=== PATIENT | male | born 1970 | race Caucasian/White ===

== ENCOUNTER 2016-08-19 11:34 | Emergency (ER) | payer BC ==
[2016-08-19] MEDS ORDERED: Tetracaine 0.5% OPTH.SOL 4 ML* 1 DROP BTL ONE (13:20)
[2016-08-19] MEDS ORDERED: BSS OPTH.SOL* BTL ONE (13:20)
[2016-08-19] MEDS ORDERED: Fluorescein Sodium TOPICAL* 1 MG TEST ONE (13:20)
--- NOTE | 2016-08-19 13:38 | UC ---
Eye Complaint HPI - HPI Summary HPI Summary: patient thinks he had something in his eye last night, used saline to flush it out. he still feels like there is something in there. left upper lid is swollen. - History of Current Complaint Chief Complaint: UCEye Stated Complaint: FB IN LEFT EYE Time Seen by Provider: 08/19/16 13:23 Hx Obtained From: Patient Onset/Duration: Sudden Onset, Lasting Hours Timing: Constant Severity Initially: Mild Severity Currently: Moderate Location of Injury: Conjunctiva, Eye Lid (upper), Sclera Character: Foreign Body Sensation Aggravating Factor(s): Light Alleviating Factor(s): Nothing Associated Signs And Symptoms: Positive: Drainage (Clear) - Allergies/Home Medications Allergies/Adverse Reactions: Allergies Allergy/AdvReac Type Severity Reaction Status Date / Time No Known Allergies Allergy Verified 08/19/16 12:40 Home Medications: Home Medications Bp Med 1 tab PO DAILY 08/19/16 [History Confirmed 08/19/16] Cholesterol Med 1 tab PO DAILY 08/19/16 [History] PMH/Surg Hx/FS Hx/Imm Hx Previously Healthy: Yes Cardiovascular History Of: Reports: Hypertension - Surgical History Surgical History: None - Family History Known Family History: Negative: Hypertension - Social History Alcohol Use: Daily Alcohol Amount: 8-10 beers a day Substance Use Type: None Smoking Status (MU): Heavy Every Day Tobacco Smoker Type: Cigarettes Amount Used/How Often: 1/2 PPD Review of Systems Constitutional: Negative Skin: Negative Eyes: Eye Redness, Other - swollen ENT: Negative Respiratory: Negative Cardiovascular: Negative Gastrointestinal: Negative Genitourinary: Negative Motor: Negative Neurovascular: Negative Musculoskeletal: Negative Neurological: Negative Psychological: Negative All Other Systems Reviewed And Are Negative: Yes Physical Exam Triage Information Reviewed: Yes Appearance: Well-Appearing, Well-Nourished, Pain Distress Vital Signs: Initial Vital Signs Temp 98.1 F 08/19/16 12:41 Pulse 86 08/19/16 12:41 Resp 16 08/19/16 12:41 BP 119/62 08/19/16 12:41 Pulse Ox 100 08/19/16 12:41 Vital Signs Reviewed: Yes Eye Exam: Normal Eyes: Positive: Conjunctiva Inflamed, Other: - upper left lid is swollen and red , diffuse redness on the sclera ENT Exam: Normal Dental Exam: Normal Neck exam: Normal Respiratory Exam: Normal Respiratory: Positive: Chest non-tender, Lungs clear, Normal breath sounds Cardiovascular Exam: Normal Cardiovascular: Positive: RRR, No Murmur, Pulses Normal Abdominal Exam: Normal Abdomen Description: Positive: Nontender, No Organomegaly, Soft Bowel Sounds: Positive: Present Musculoskeletal Exam: Normal Musculoskeletal: Positive: Strength Intact, ROM Intact, No Edema Neurological Exam: Normal Psychological Exam: Normal Skin Exam: Normal Eye Complaint Course/Dx - Course Course Of Treatment: hx obtained, exam performed, meds reviewed, flurescene eye exam performed, abraisions to cornea noted, no FB seen - Differential Dx/Diagnosis Differential Diagnosis/HQI/PQRI: Conjunctivitis, Corneal Abrasion, Keratitis, Penetrating Injury, Periorbital Cellulitis, Orbital Cellulitis Provider Diagnoses: corneal abrasion Discharge - Discharge Plan Condition: Stable Disposition: HOME Patient Education Materials: Corneal Abrasion (ED) Additional Instructions: use the medication as prescribed. Follow up with eye doctor if pain and irritation are not improving in the next 2-3 days.
== END 2016-08-19 13:47 | disposition home or self-care (01) ==
LOC: UCCORT 11:34
DX: S05.02XA Injury of conjunctiva and corneal abrasion without foreign body, left eye, initial encounter (principal); X58.XXXA Exposure to other specified factors, initial encounter; Y93.9 Activity, unspecified; Y92.9 Unspecified place or not applicable; I10 Essential (primary) hypertension; F17.210 Nicotine dependence, cigarettes, uncomplicated
CPT/HCPCS: 99202; A9270-GY; G0463

== ENCOUNTER 2016-09-03 09:48 | Emergency (ER) | payer BC ==
[2016-09-03 10:26] VITALS: BP 153/94
--- NOTE | 2016-09-03 10:39 | UC ---
UC General HPI - HPI Summary HPI Summary: complaint of chest wall pain that started approx 1 week ago constant dull aching pain pain goes from the front of chest to the back of chest sometimes he feesl shortness of breath and dizziness with the pain sometimes gets a sharp stabbing chest pain for 5-10 seconds moving his arm overhead lesssens the pain nothing makes the pain worse denies diaphoresis, palpitations, nausea, denies any recent trauma- works as a lathe machinist recent cough ,nasal congestion, fatigued cardiac workup 1 year ago- Dr Hathaway is PCP denies fever - History of Current Complaint Chief Complaint: UCAbdominalPain Stated Complaint: FLANK/BACK PAIN Time Seen by Provider: 09/03/16 10:25 Hx Obtained From: Patient - Allergy/Home Medications Allergies/Adverse Reactions: Allergies Allergy/AdvReac Type Severity Reaction Status Date / Time No Known Allergies Allergy Verified 09/03/16 10:16 PMH/Surg Hx/FS Hx/Imm Hx Previously Healthy: Yes Cardiovascular History Of: Reports: Hypertension - Surgical History Surgical History: None - Family History Known Family History: Positive: Cardiac Disease - father- CAD- possible [place], brother with CAD, Hypertension - father, brother Negative: Diabetes - Social History Occupation: Employed Full-time Lives: With Family Alcohol Use: Daily Alcohol Amount: 10-12 beers a day Substance Use Type: None Smoking Status (MU): Heavy Every Day Tobacco Smoker Type: Cigarettes Amount Used/How Often: 1/2 PPD Length of Time of Smoking/Using Tobacco: started at age 20 Have You Smoked in the Last Year: Yes Review of Systems Constitutional: Negative Skin: Negative Eyes: Negative ENT: Negative Respiratory: Shortness Of Breath Cardiovascular: Chest Pain Gastrointestinal: Negative Genitourinary: Negative Motor: Negative Neurovascular: Negative Musculoskeletal: Negative Neurological: Negative Psychological: Negative All Other Systems Reviewed And Are Negative: Yes Physical Exam Triage Information Reviewed: Yes Appearance: Well-Nourished, Ill-Appearing, Obese Vital Signs: Initial Vital Signs Temp 98.3 F 09/03/16 10:08 Pulse 90 09/03/16 10:08 Resp 14 09/03/16 10:08 BP 153/94 09/03/16 10:08 Pulse Ox 99 09/03/16 10:08 Vital Signs Reviewed: Yes Eyes: Positive: Conjunctiva Clear ENT: Positive: Pharynx normal, TMs normal Neck: Positive: No Lymphadenopathy Respiratory: Positive: Chest non-tender, Lungs clear, Normal breath sounds, No respiratory distress, No accessory muscle use Cardiovascular: Positive: RRR, No Murmur, Pulses Normal, Brisk Capillary Refill Abdomen Description: Positive: Nontender, No Organomegaly, Soft, Distended. Negative: CVA Tenderness (R), CVA Tenderness (L), Guarding Bowel Sounds: Positive: Present Musculoskeletal: Positive: No Edema Neurological Exam: Normal Psychological Exam: Normal Skin Exam: Normal Course/Dx - Course Course Of Treatment: exam completed. cannot reproduce chest wall pain with palpation. chest x-ray shows no acute abnormalities. EKG shows NSR no st chnages or ectopy. will send to ED for further evaluation and treatment d/t multiple cardiac risk factors and chest pain for 1 week - Differential Dx - Multi-Symptom Provider Diagnoses: chest pain - Physician Notifications Discussed Patient Care With: Alicia Salas NP Time Discussed With Above Provider: 11:27 - 10:53- Dr Pierre Discharge - Discharge Plan Condition: Stable [facility]
--- NOTE | 2016-09-03 11:14 | RAD ---
INDICATION: Chest pain. Short of breath. COMPARISON: None TECHNIQUE: PA and lateral dual-energy views were obtained. FINDINGS: Bones/Soft Tissues: There are no acute bony findings. Cardiomediastinal: The cardiomediastinal silhouette is normal. Lungs: There are no infiltrates. Pleura: There are no pleural effusions. Other: None IMPRESSION: NO ACTIVE DISEASE.
== END 2016-09-03 11:30 | disposition short-term general hospital (02) ==
LOC: UCCORT 09:48
DX: R07.9 Chest pain, unspecified (principal); F17.210 Nicotine dependence, cigarettes, uncomplicated
CPT/HCPCS: 71020; 93005; 99212; G0463

== ENCOUNTER 2018-05-12 09:38 | Emergency (ER) | payer BC ==
[2018-05-12 11:16] VITALS: BP 130/92
--- NOTE | 2018-05-12 11:42 | UC ---
UC General HPI - HPI Summary HPI Summary: was about to toss a large rock when he got a sudden pain in R shoulder 2 days ago. c/o ongoing pain. notes difficulty to raise arm due to pain. no numbness or weakness to hand. - History of Current Complaint Chief Complaint: UCUpperExtremity Stated Complaint: RT SHOULDER INJURY Time Seen by Provider: 05/12/18 11:32 Hx Obtained From: Patient Onset/Duration: Sudden Onset Timing: Constant Pain Intensity: 0 Aggravating: abduction - Allergy/Home Medications Allergies/Adverse Reactions: Allergies Allergy/AdvReac Type Severity Reaction Status Date / Time bee venom protein (honey bee) Allergy Unknown Verified 05/12/18 11:13 Reaction Details PMH/Surg Hx/FS Hx/Imm Hx Endocrine History: Dyslipidemia Cardiovascular History: Hypertension - Surgical History Surgical History: None - Family History Known Family History: Positive: Cardiac Disease - father- CAD- possible [place], brother with CAD, Hypertension - father, brother Negative: Diabetes - Social History Occupation: Employed Full-time Lives: With Family Alcohol Use: 10-12 beers every other day Alcohol Amount: 10-12 beers a day Substance Use Type: None Smoking Status (MU): Heavy Every Day Tobacco Smoker Type: Cigarettes Amount Used/How Often: 1/2 PPD Length of Time of Smoking/Using Tobacco: Since Age 20 Have You Smoked in the Last Year: Yes Review of Systems All Other Systems Reviewed And Are Negative: Yes Constitutional: Positive: Negative Skin: Positive: Negative Eyes: Positive: Negative ENT: Positive: Negative Respiratory: Positive: Negative Cardiovascular: Positive: Negative Gastrointestinal: Positive: Negative Genitourinary: Positive: Negative Neurovascular: Positive: Negative Musculoskeletal: Positive: Negative Neurological: Positive: Negative Psychological: Positive: Negative Physical Exam Triage Information Reviewed: Yes Appearance: Well-Appearing Vital Signs: Initial Vital Signs Temp 97.9 F 05/12/18 11:11 Pulse 83 05/12/18 11:11 Resp 17 05/12/18 11:11 BP 130/92 05/12/18 11:11 Pulse Ox 98 05/12/18 11:11 Vital Signs Reviewed: Yes Eyes: Positive: Conjunctiva Clear ENT: Positive: Normal ENT inspection Neck: Positive: Supple, Nontender, No Lymphadenopathy Respiratory: Positive: Lungs clear, Normal breath sounds Cardiovascular: Positive: RRR, No Murmur Abdomen Description: Positive: Nontender, No Organomegaly, Soft Bowel Sounds: Positive: Present Musculoskeletal: Positive: Other: - RUE: compared to LUE has some mild swelling over anterior shoulder. tender over anterior - lateral shoulder. Biceps and tendons are non tender. AC joint non tender. Limited ROM in abduction due to pain. Negative anterior stress. Rest of arm non tender and has full s/v/m function. Neurological: Positive: Alert Psychological: Positive: Age Appropriate Behavior Skin Exam: Normal Diagnostics - Radiology No standard instances Radiology Interpretation Completed By: Radiologist - R shoulder=NO ACUTE OSSEOUS INJURY. IF SYMPTOMS PERSIST, RECOMMEND REPEAT IMAGING. Course/Dx - Differential Dx - Multi-Symptom Differential Diagnoses: Other - rotator cuff injury, biceps mm/tendon injury, ac joint injury - Diagnoses Provider Diagnosis: Right shoulder pain Discharge - Sign-Out/Discharge Documenting (check all that apply): Patient Departure All imaging exams completed and their final reports reviewed: Yes - Discharge Plan Condition: Stable Disposition: HOME Prescriptions: Naproxen [Naprosyn 500 mg tab] 500 mg PO BID 5 Days #10 tablet Patient Education Materials: Rotator Cuff Injury (ED), Shoulder Pain (ED) Referrals: Maxi Carter MD [Medical Doctor] - As Soon As Possible - Billing Disposition and Condition Condition: STABLE Disposition: Home - Attestation Statements Provider Attestation: I was available for consult. This patient was seen by the [facility]. The patient was not presented to, seen by, or examined by me. -Bull
== END 2018-05-12 12:33 | disposition home or self-care (01) ==
LOC: UCCORT 09:38
DX: M25.511 Pain in right shoulder (principal); I10 Essential (primary) hypertension; F17.210 Nicotine dependence, cigarettes, uncomplicated
CPT/HCPCS: 99212; G0463